=== PATIENT | male | born 1960 | race Caucasian/White ===

== ENCOUNTER → 2018-05-03 09:01 | Outpatient (CLI) | payer OTHER | END | disposition home or self-care (01) | LOC: D.US 09:01 → D.HCCARDIO 12:00 | DX: I20.9 Angina pectoris, unspecified (principal) ==

== ENCOUNTER 2018-05-23 10:31 | Outpatient (CLI) | payer OTHER ==
[~2018-05-23] VITALS: Ht 188 cm; Wt 116.4 kg
--- NOTE | ~2018-05-23 | HEMODYNAMI ---
PATIENT:BOB ROSS MEDICAL RECORD: [id number] : 60 LOCATION:[facility] ADMISSION DATE: 05/23/18 Generatedon:05/23/201813:22 Patient name: BOB ROSS Patient #: [id number] SSN: : 1960 Date of study: 05/23/2018 Page: Of Hemodynamic Procedure Report Patient Data Patient Demographics First Name: BOB Gender: Male Last Name: CODY : 1960 Middle Initial: LETI Age: 57 year(s) Patient #: [id number] Race: Unknown Additional ID: [id number] Contact details [address]: [address] [place] [address] State: [place] City: [place] Zip code: [address] Admission Admission Data Admission Date: 05/23/2018 Admission Time: 10:31 Arrival Date: 05/23/2018 Arrival Time: 13:00 Admit Source: Other Insurance Payor: Private health insurance Height (in.): 74 BSA: 2.43 (m2) Height (cm.): 187.96 BMI: 33.25 (kg/m2) Weight (lbs.): 259 Weight (kg.): 117.48 Procedure Procedure Types Cath Procedure Diagnostic Procedure [facility] w/Coron[facility] Procedure Description Procedure Date Procedure Date: 05/23/2018 Procedure Start Time: 13:09 Procedure End Time: 13:19 Procedure Staff Name Function Elmer Jimenez MD Performing Physician Petra Rodriguez RT Monitor Gris Porter RT Scrub Mitch Mckinley RN Nurse Procedure Data Cath Procedure Fluoroscopy Diagnostic fluoroscopy Total fluoroscopy Time: 1.8 time: 1.8 min min Diagnostic fluoroscopy Total fluoroscopy dose: 654 dose: 654 mGy mGy Contrast Material Contrast Material Type Amount (ml) Isovue 300 57 Entry Location Entry Primary Successful Side Size Upsize Upsize Entry Closure Baig ccessful Closure Location (Fr) 1 (Fr) 2 (Fr) Remarks Device Remarks Radial Right 6 Fr Mechanical TR artery Short Compression Estimated blood loss: 10 ml Diagnostic catheters Device Type Used For End Catheter Placement DIAGNOSTIC Mendel 110cm Procedure 5Fr catheter ([id number]) Procedure Complications No complications Procedure Medications Medication Administration Route Dosage 0.9% NaCl I.V. 100 ml/hr Oxygen etCO2 Nasal cannula 2 l/min Heparin Flush Bag added to field 2 bags (1000units/500ml NS) Lidocaine 2% added to field 20 Radial Cocktail added to field 1 syringe (Verapomil 2mg/Nitro 400mcg/Heparin 1500units) Benadryl I.V. 50 mg Versed I.V. 2 mg Fentanyl I.V. 100 mcg Versed I.V. 1 mg Fentanyl I.V. 50 mcg Versed I.V. 1 mg Fentanyl I.V. 50 mcg Radial Cocktail I.A. 1 syringe (Verapomil 2mg/Nitro 400mcg/Heparin 1500units) Versed I.V. 1 mg Hemodynamics Rest BSA: 2.43 (m2) O2 Consumption: Estimated: 287.43 (ml/min) O2 Consumption indexed : Estimated:118.28 (ml/min/m) Heart Rate: 70 (bpm) Pressure Samples Time Site Value (mmHg) Purpose Heart Use Rate(bpm) 13:13 LV 137/3,16 Snapshot 71 13:14 AO 121/75(95) Pullback 70 13:14 LV 127/20,23 Pullback 70 Gradients Valve Time Site 1 Site 2 Mean SEP/DFP Peak To Heart Use (mmHg) (sec/min) Peak Rate (mmHg) (bpm) Aortic 13:14 LV AO 5 16 6 70 127/20,23 121/75(95) Calculations Valve P-P Mean Valve Index Valve Source Name Gradient Area Flow (cm2) Aortic 6 5 6 5 Snapshots Pre Cath Intra NCS Post Cath Vital Signs Time Heart Resp SPO2 etCO2 NIBP (mmHg) Rhythm Pain Sedation Rate (ipm) (%) (mmHg) Status Level (bpm) 12:43:03 66 13 95 0 149/87(119) NSR 0 (11) 10(A) , No pain 12:47:17 70 12 94 34 137/88(118) NSR 0 (11) 10(A) , No pain 12:51:27 71 14 93 34 154/85(114) NSR 0 (11) 10(A) , No pain 12:55:43 62 12 94 22.6 141/86(115) NSR 0 (11) 10(A) , No pain 12:59:55 68 15 94 0.7 150/88(111) NSR 0 (11) 10(A) , No pain 13:04:11 65 17 92 0 166/84(106) NSR 0 (11) 10(A) , No pain 13:08:13 64 14 91 2.2 127/86(102) NSR 0 (11) 10(A) , No pain 13:12:23 72 15 96 0 144/78(102) NSR 0 (11) 9(A) , No pain 13:16:31 77 10 90 30.2 129/84(107) NSR 0 (11) 9(A) , No pain Medications Time Medication Route Dose Verified Delivered Reason Notes Effectiveness by by 12:45:42 0.9% NaCl I.V. 100 Mitch Mitch Per ml/hr Arlen Mckinley physician RN RN 12:45:54 Oxygen etCO2 2 l/min Mitch Mitch Per Nasal Arlen Mckinley physician cannula RN RN 12:46:11 Heparin Flush added 2 bags Mitch Mitch used for Bag to Lorigan Lorigan procedure (1000units/500ml RN RN NS) 12:46:23 Lidocaine 2% added 20ml Mitch Mitch for local to vial Lorigan Lorigan anesthetic field MADRIGAL RN 12:46:36 Radial Cocktail added 1 Mitch Mitch used for (Verapomil to syringe Lorigan Lorigan procedure 2mg/Nitro RN RN 400mcg/Heparin 1500units) 12:46:47 Benadryl I.V. 50 mg Mitch Mitch Per Arlen Mckinley physician RN RN 12:55:58 Versed I.V. 2 mg Mitch Mitch for sedation Arlen Mckinley RN RN 12:56:07 Fentanyl I.V. 100 mcg Mitch Mitch for sedation Arlen Mckinley RN RN 13:02:02 Versed I.V. 1 mg Mitch Mitch for sedation Arlen Mckinley RN RN 13:02:10 Fentanyl I.V. 50 mcg Mitch Mitch for sedation Arlen Mckinley RN RN 13:10:21 Versed I.V. 1 mg Mitch Mitch for sedation Arlen Mckinley RN RN 13:10:27 Fentanyl I.V. 50 mcg Mitch Mitch for sedation Arlen Mckinley RN, RN 13:12:58 Radial Cocktail I.A. 1 Mitch Payne for (Verapomil syringe Arlen Jimenez MD vasodilation 2mg/Nitro RN 400mcg/Heparin 1500units) 13:13:05 Versed I.V. 1 mg Mitch Meyer for sedation Arlen Mckinley RN, RN Procedure Log Time Note 12:20:18 Mitch Mckinley RN sent for patient. Start room use. 12:35:38 Patient Height : 74 inches 12:35:42 Patient Weight : 259 lbs 12:35:42 Admit Source: Other 12:35:45 Arrival Date: 05/23/2018 1:00:00 PM 12:35:55 Insurance Payor : Private health insurance 12:36:19 Time tracking: Regular hours (M-F 7:00 - 5:00) 12:36:23 Plan of Care:Hemodynamics will remain stable., Cardiac rhythm will remain stable., Comfort level will be maintained., Respiratory function will remain adequate., Patient/ family verbilizes understanding of procedure., Procedure tolerated without complication., Recovers from procedure without complications.. 12:41:59 Vital chart was started 12:45:42 0.9% NaCl 100 ml/hr I.V. was administered by Mitch Mckinley RN; Per physician; 12:45:54 Oxygen 2 l/min etCO2 Nasal cannula was administered by Mitch Mckinley RN; Per physician; 12:46:11 Heparin Flush Bag (1000units/500ml NS) 2 bags added to field was administered by Mitch Mckinley RN; used for procedure; 12:46:23 Lidocaine 2% 20ml vial added to field was administered by Mitch Mckinley RN; for local anesthetic; 12:46:36 Radial Cocktail (Verapomil 2mg/Nitro 400mcg/Heparin 1500units) 1 syringe added to field was administered by Mitch Mckinley RN; used for procedure; 12:46:47 Benadryl 50 mg I.V. was administered by Mitch Mckinley RN; Per physician; 12:47:15 Baseline sample Acquired. 12:47:18 Rhythm: sinus rhythm 12:47:20 Full Disclosure recording started 12:47:23 H&P Date Dictated: 05/23/2018 Within 30 days and on chart., H&P Addendum completed by physician on day of procedure. (MUST COMPLETE FOR ALL OUTPATIENTS). 12:47:25 Pre-procedure instructions explained to patient. 12:47:25 Pre-op teaching completed and patient verbalized understanding. 12:47:26 Family in patients room. 12:47:28 Patient NPO since Midnight. 12:51:41 Is the patient allergic to Iodine/contrast media? No. 12:51:44 Was the patient premedicated? Yes 12:51:45 Is patient on blood thinner?No 12:51:47 Patient diabetic? No. 12:51:51 Snore? Yes 12:51:53 Sleep apnea? No 12:52:01 Dentures? No ? 12:52:14 IV patent on arrival in left forearm with 0.9% NaCl at [facility]. 12:52:19 Lab results completed and on chart. 12:52:58 Right Radial & Right Groin area was prepped with chlora-prep and draped in sterile fashion 12:52:59 Alarms reviewed by R. N. 12:52:59 Sharps counted by scrub and verified by R.N. 12:53:00 Physician paged 12:53:01 Physician arrived 12:53:01 --------ALL STOP TIME OUT------ 12:53:02 Final Timeout: patient, procedure, and site verified with staff and physician. All members of the team are in agreement. 12:53:05 Right Radial & Right Groin site verified by team. 12:53:10 Physical assessment completed. ASA score P 2 - A patient with mild systemic disease as per Elmer Jimenez MD. 12:53:14 Sedation plan: IV Moderate Sedation Medication:Versed, Fentanyl 12:53:19 Use device set Radial Dx or PCI 12:53:20 ACIST Syringe (50572) opened to sterile field. 12:53:20 Medline Cath Pack ([id number]) opened to sterile field. 12:53:21 Bag Decanter (2002) opened to sterile field. 12:53:21 DIAGNOSTIC WIRE .035 260cm J wire (797002) opened to sterile field. 12:53:22 ACIST Hand Control (47601) opened to sterile field. 12:53:22 ACIST Manifold (35638) opened to sterile field. 12:53:23 Tegaderm 4 x 4 (1626W) opened to sterile field. 12:53:23 MBrace Wrist Support ([id number]) opened to sterile field. 12:53:30 SHEATH 6FR Slender (22-5815) opened to sterile field. 12:55:58 Versed 2 mg I.V. was administered by Mitch Mckinley RN; for sedation; 12:56:07 Fentanyl 100 mcg I.V. was administered by Mitch Mckinley RN; for sedation; 13:01:42 Zero performed for pressure channel P1 13:02:02 Versed 1 mg I.V. was administered by Mitch Mckinley RN; for sedation; 13:02:10 Fentanyl 50 mcg I.V. was administered by Mitch Mciknley RN; for sedation; 13:09:10 Procedure started. 13:09:38 Local anesthetic to right radial artery with Lidocaine 2% by Elmer Jimenez MD.INITIAL ACCESS ONLY 13:09:56 A 6 Fr Short sheath was inserted into the Right Radial artery 13:10:21 Versed 1 mg I.V. was administered by Mitch Mckinley RN; for sedation; 13:10:27 Fentanyl 50 mcg I.V. was administered by Mitch Mckinley RN; for sedation; 13:11:49 A DIAGNOSTIC Primocare 110cm 5Fr catheter ([id number]) was advanced over the wire and used for Procedure. 13:12:43 LV angiography performed. 13:12:58 Radial Cocktail (Verapomil 2mg/Nitro 400mcg/Heparin 1500units) 1 syringe I.A. was administered by Elmer Jimenez MD; for vasodilation; 13:13:00 LV gram done using BRANCH 13:13:05 Versed 1 mg I.V. was administered by Mitch Mckinley RN; for sedation; 13:14:03 EF : 60 % 13:14:23 RCA angiography performed. 13:15:30 LCA angiography performed. 13:16:37 Catheter removed. 13:17:34 Sheath removed intact; hemostasis achieved with Mechanical Compression to the Right Radial artery. 13:17:37 Procedure ended.(Physican Out) 13:17:49 Fluoroscopy time 01.80 minutes. 13:17:54 Fluoroscopy dose: 654 mGy 13:17:54 Flurop Dose total: 654 13:17:59 Contrast amount:Isovue 300 57ml. 13:18:01 Sharps counted by scrub and verified by R.N. 13:18:15 TR BAND Standard ([id number]) opened to sterile field. 13:18:23 TR band inflated with 10cc of air. 13:18:25 Insertion/operative site no bleeding no hematoma. 13:18:27 Post Procedure Pulses reassessed and unchanged 13:18:33 Post-procedure physical assessment completed. ASA score P 2 - A patient with mild systemic disease as per Elmer Jimenez MD. 13:18:41 Post procedure rhythm: unchanged. 13:18:44 Estimated blood loss: 10 ml 13:18:46 Post procedure instruction explained to patient.Patient verbalizes understanding. 13:18:54 Procedure and supply charges have been captured, reviewed, submitted and are correct. 13:19:20 Procedure Complication : No complications 13:19:23 Vital chart was stopped 13:19:27 Report given to Pre/Post Procedure Room. 13:19:31 Patient transfered to Pre/Post Procedure Room with Stretcher. 13:19:34 Procedure ended. 13:19:34 Full Disclosure recording stopped 13:19:37 End room use (Document Last) Device Usage Item Name Manufacture Quantity Catalog Hospital Part Current Minimal Lot# / Number Charge Number Stock Stock Serial# Code ACIST Acist 1 18177 047512 378017 371166 20 Syringe Medical (41461) Systems Inc Medline Medline 1 [id number] 033275 63118 226934 5 Cath Pack ([id number]) Bag Microtek 1 2001S 669963 02894 939704 5 Decanter Medical Inc. () DIAGNOSTIC St [place] 1 340747 589435 688947 914942 30 WIRE .035 260cm J wire (080738) ACIST Hand Acist 1 51369 420598 659499 893958 5 Control Medical (44645) Systems Inc ACIST Acist 1 75789 253936 820383 693198 5 Manifold Medical (65511) Systems Inc Tegaderm 4 3M 1 1626W 309260 764040 969227 5 x 4 (1626W) MBrace Advanced 1 140-0250-00 701535 97273 325880 5 Wrist Vascular Support Dynamics ([id number]) SHEATH 6FR Terumo 1 [id number] 811700 448446 000598 5 Slender (80-1060) DIAGNOSTIC Terumo 1 78-2636 484877 310647 665855 5 Mendel 110cm 5Fr catheter (786025) TR BAND Terumo 1 [id number] 082856 557388 454304 40 Standard ([id number]) Signature Audit Morton Stage Time Signature Unsigned Intra-Procedure 05/23/2018 Petra Rodriguez 1:21:57 PM RT(R) Signatures Monitor : Petra Rodriguez Signature : RT Date : Time : [id number] [place] [address]
[2018-05-23] MEDS ORDERED: HYDROXYUREA500 MG PO (11:09)
[2018-05-23] MEDS ORDERED: NORVASC5 MG PO (11:09)
[2018-05-23] MEDS ORDERED: BAYER CHEWABLE81 MG PO (11:10)
[2018-05-23 11:22] VITALS: BP 133/72; Ht 188 cm; Wt 116.4 kg
[2018-05-23 11:29] LABS: BASOPHILS 0.4 % (0-2); EOSINOPHILS 2.4 % (0-7); HEMOGLOBIN 16.6 g/dL (13.5-17.5); IMMATURE GRANULOCYTES 0.5 % (0-5); LYMPHOCYTES 24.1 % (15-50); MCH 31.4 pg (26.0-34.0); MCHC 33.9 g/dL (31.0-37.0); MCV 92.6 fL (80.0-100.0); MEAN PLATELET VOLUME 9.8 fL (7.4-10.4); MONOCYTES 7.8 % (2-11); NEUTROPHILS 64.8 % (40-80); PLATELET COUNT 180 10x3/uL (130-400); RBC 5.29 10x6/uL (4.20-6.10); RDW 15.4 % (11.5-14.5); WBC 11.5 10x3/uL (4.8-10.8)
[2018-05-23 11:37] LABS: CALC OSMOLALITY 285 mosm/kg (275-300); CALCIUM 9.2 mg/dL (8.5-10.1); CARBON DIOXIDE 24.9 mmol/L (21.0-32.0); CHLORIDE - SERUM 108 mmol/L (98-107); CREATININE - SERUM 0.9 mg/dL (0.6-1.3); GLUCOSE 89 mg/dL (74-106); POTASSIUM - SERUM 4.2 mmol/L (3.5-5.1); SODIUM 143 mmol/L (136-145); UREA NITROGEN 17 mg/dL (7-18); eGFR NON AFRICAN AMERICAN > 90 mL/min (90-120)
== END 2018-05-23 15:40 | disposition home or self-care (01) ==
LOC: D.CATH 10:31
PROVIDERS: Internal Medicine Cardiovascular Disease
DX: R94.39 Abnormal result of other cardiovascular function study (principal); Z01.812 Encounter for preprocedural laboratory examination